=== PATIENT | female | born 1960 | race Caucasian/White ===

== ENCOUNTER 2016-10-01 08:52 | Day surgery (SDC) | payer OTHER ==
[~2016-10-01] VITALS: Ht 160 cm; Wt 72.7 kg
[~2016-10-01 08:52] MED LIST: CITRACAL + D C1 EACH PO; DESYREL100 MG PO; DOLOPHINE HCL5 MG PO; ESTRACE0.5 MG PO; IRON325 MG PO; LEVO-T50 MCG PO; LYRICA100 MG PO; METFORMIN HCL500 M4 PO; PRAVACHOL80 MG PO; PRINIVIL10 MG PO; PROTONIX40 MG PO; ZOLOFT100 MG PO
[2016-10-01 09:18] LABS: POINT-OF-CARE METER ID UU14174212
== END 2016-10-01 10:00 | disposition home or self-care (01) ==
LOC: PAIN 08:52 → SDC 09:15 → PAIN 10:00
PROVIDERS: Anesthesiology Pain Medicine
DX: M16.11 Unilateral primary osteoarthritis, right hip (principal); M25.551 Pain in right hip; F41.9 Anxiety disorder, unspecified; G60.0 Hereditary motor and sensory neuropathy; E11.9 Type 2 diabetes mellitus without complications; F17.290 Nicotine dependence, other tobacco product, uncomplicated; I10 Essential (primary) hypertension; K21.9 Gastro-esophageal reflux disease without esophagitis; E78.5 Hyperlipidemia, unspecified; G25.81 Restless legs syndrome; F11.20 Opioid dependence, uncomplicated; Z88.8 Allergy status to other drugs, medicaments and biological substances; Z91.041 Radiographic dye allergy status
CPT/HCPCS: 82948; J1030; J3010; S0020

== ENCOUNTER 2016-10-15 10:16 | Day surgery (SDC) | payer OTHER ==
[2016-10-15 11:44] LABS: POINT-OF-CARE METER ID UU14174212
== END 2016-10-15 11:52 | disposition home or self-care (01) ==
LOC: PAIN 10:16 → SDC 11:00 → PAIN 11:52
PROVIDERS: Anesthesiology Pain Medicine
PROC: 3E0U33Z Introduction of Anti-inflammatory into Joints, Percutaneous Approach (ICD-10-PCS; principal; 2016-10-15)
DX: M16.12 Unilateral primary osteoarthritis, left hip (principal); K21.9 Gastro-esophageal reflux disease without esophagitis; F41.1 Generalized anxiety disorder; E03.9 Hypothyroidism, unspecified; E78.00 Pure hypercholesterolemia, unspecified; G25.81 Restless legs syndrome; M51.16 Intervertebral disc disorders with radiculopathy, lumbar region; M51.36 Other intervertebral disc degeneration, lumbar region; M48.06 Spinal stenosis, lumbar region; M41.9 Scoliosis, unspecified
CPT/HCPCS: 82948; J1030; J2250; J3010; S0020

== ENCOUNTER 2017-06-02 10:16 | Day surgery (SDC) | payer OTHER ==
[~2017-06-02] VITALS: Ht 161.3 cm; Wt 72.6 kg
[~2017-06-02 10:16] MED LIST changes: +ESTRADIOL1 MG PO; +LISINOPRIL20 MG PO; +ZANTAC150 MG PO
[2017-06-02 11:47] LABS: POINT-OF-CARE METER ID UU14174212
== END 2017-06-02 13:00 | disposition home or self-care (01) ==
LOC: PAIN 10:16 → SDC 10:45 → PAIN 13:00
PROVIDERS: Anesthesiology Pain Medicine
DX: M47.26 Other spondylosis with radiculopathy, lumbar region (principal); M51.16 Intervertebral disc disorders with radiculopathy, lumbar region; M48.06 Spinal stenosis, lumbar region; I10 Essential (primary) hypertension; E11.43 Type 2 diabetes mellitus with diabetic autonomic (poly)neuropathy; K31.84 Gastroparesis; G60.0 Hereditary motor and sensory neuropathy; F41.8 Other specified anxiety disorders; E78.00 Pure hypercholesterolemia, unspecified; K21.9 Gastro-esophageal reflux disease without esophagitis; E03.9 Hypothyroidism, unspecified; Z79.891 Long term (current) use of opiate analgesic; Z79.84 Long term (current) use of oral hypoglycemic drugs; Z87.891 Personal history of nicotine dependence
CPT/HCPCS: 82948; J1030; J2250; J3010

== ENCOUNTER 2017-09-16 16:27 | Emergency (ER) | payer OTHER ==
[~2017-09-16] VITALS: Ht 160 cm; Wt 74.0 kg
[2017-09-16] MEDS ORDERED: NAPROSYN500 MG PO (21:02)
[2017-09-16 21:19] VITALS: BP 106/74
== END 2017-09-16 21:21 | disposition home or self-care (01) ==
LOC: EME 16:27
DX: S80.02XA Contusion of left knee, initial encounter (principal); M25.552 Pain in left hip; V49.40XA Driver injured in collision with unspecified motor vehicles in traffic accident, initial encounter; Y92.410 Unspecified street and highway as the place of occurrence of the external cause; Z87.442 Personal history of urinary calculi; I10 Essential (primary) hypertension; G25.81 Restless legs syndrome; F10.10 Alcohol abuse, uncomplicated; E78.5 Hyperlipidemia, unspecified; E11.9 Type 2 diabetes mellitus without complications; E03.9 Hypothyroidism, unspecified; Z79.84 Long term (current) use of oral hypoglycemic drugs; Z88.8 Allergy status to other drugs, medicaments and biological substances; Z91.041 Radiographic dye allergy status; Z87.891 Personal history of nicotine dependence
CPT/HCPCS: 72170; 73564; 99281; 99284

== ENCOUNTER 2017-11-17 09:48 | Day surgery (SDC) | payer OTHER ==
[~2017-11-17] VITALS: Ht 157.5 cm; Wt 72.6 kg
[~2017-11-17 09:48] MED LIST changes: -LISINOPRIL20 MG PO; +MOVANTIK12.5 MG PO; +NAPROSYN500 MG PO; +ZESTRIL10 MG PO
== END 2017-11-17 11:25 | disposition home or self-care (01) ==
LOC: PAIN 09:48 → SDC 10:15 → PAIN 11:25
PROVIDERS: Anesthesiology Pain Medicine
DX: M54.16 Radiculopathy, lumbar region (principal); M47.816 Spondylosis without myelopathy or radiculopathy, lumbar region; M79.1 Myalgia; E11.40 Type 2 diabetes mellitus with diabetic neuropathy, unspecified; K21.9 Gastro-esophageal reflux disease without esophagitis; I10 Essential (primary) hypertension; E78.00 Pure hypercholesterolemia, unspecified; E03.9 Hypothyroidism, unspecified; M48.061 Spinal stenosis, lumbar region without neurogenic claudication; Z87.891 Personal history of nicotine dependence; Z79.84 Long term (current) use of oral hypoglycemic drugs
CPT/HCPCS: 82948; 93005; J1100; J2250; J3010

== ENCOUNTER 2018-03-31 17:12 | Emergency (ER) | payer OTHER ==
[~2018-03-31] VITALS: Ht 160 cm; Wt 72.7 kg
[2018-03-31] MEDS ORDERED: NAPROXEN500 MG PO (20:27)
[2018-03-31] MEDS ORDERED: VALIUM5 MG PO (20:27)
[2018-03-31 21:10] VITALS: BP 100/51
== END 2018-03-31 21:08 | disposition home or self-care (01) ==
LOC: EME 17:12
DX: S76.911A Strain of unspecified muscles, fascia and tendons at thigh level, right thigh, initial encounter (principal); W18.30XA Fall on same level, unspecified, initial encounter; Y92.015 Private garage of single-family (private) house as the place of occurrence of the external cause; E78.5 Hyperlipidemia, unspecified; E11.43 Type 2 diabetes mellitus with diabetic autonomic (poly)neuropathy; K31.84 Gastroparesis; E03.9 Hypothyroidism, unspecified; G25.81 Restless legs syndrome; F17.200 Nicotine dependence, unspecified, uncomplicated; Z87.442 Personal history of urinary calculi; Z79.84 Long term (current) use of oral hypoglycemic drugs; Z91.041 Radiographic dye allergy status; Z88.8 Allergy status to other drugs, medicaments and biological substances
CPT/HCPCS: 73502; 99281; 99284; J1885